=== PATIENT | female | born 1975 | race Caucasian/White ===

== ENCOUNTER 2021-03-15 23:19 | Emergency (ER) | payer OTHER ==
[~2021-03-15 23:19] MED LIST: ASPIRIN EC81 MG PO; ATORVASTATIN CA80 MG PO; BUSPAR 10MG10 MG PO; CELEBREX 200MG200 MG PO; CHANTIX1 MG PO; DUEXIS 800-26.1 EACH PO; HYDROCHLOROTH12.5 MG PO; IBU800 MG PO; K-DUR TAB 10 M10 MEQ PO; LEXAPRO10 MG PO; MOBIC15 MG PO; NEURONTIN300 MG PO; OXYCODONE HCL5 MG PO; PERCOCET 7.5-31 EACH PO; RANITIDINE HCL150 MG PO; REQUIP1 MG PO; SEROQUEL50 MG PO; VIT D PO; WELLBUTRIN PO; ZOFRAN ODT 4 MG4 MG PO
[2021-03-16 01:10] LABS: HEMOGLOBIN 13.9 gm/dl (12.3-15.3); RED BLOOD COUNT 4.78 M/UL (4.00-5.10)
[2021-03-16] MEDS ORDERED: BACTRIM DS TAB1 EACH PO (02:34)
[2021-03-16] MEDS ORDERED: PYRIDIUM200 MG PO (02:34)
== END 2021-03-16 03:00 | disposition home or self-care (01) ==
LOC: ER1 23:19
PROVIDERS: Physician Assistant Medical
DX: N30.90 Cystitis, unspecified without hematuria (principal); Z90.710 Acquired absence of both cervix and uterus; Z88.0 Allergy status to penicillin; Z79.899 Other long term (current) drug therapy
CPT/HCPCS: 80053; 81001; 85025; 96372; 99284; J1885

== ENCOUNTER 2021-04-25 20:39 | Emergency (ER) | payer OTHER ==
[~2021-04-25 20:39] MED LIST changes: +BACTRIM DS TAB1 EACH PO; +PYRIDIUM200 MG PO
== END 2021-04-25 21:35 | disposition left against medical advice (07) ==
LOC: ER1 20:39
DX: Z53.21 Procedure and treatment not carried out due to patient leaving prior to being seen by health care provider (principal)

== ENCOUNTER → 2021-09-16 | Outpatient (CLI) | payer OTHER | LOC: KOH-I 14:30 | DX: M25.521 Pain in right elbow (principal); R93.6 Abnormal findings on diagnostic imaging of limbs | CPT/HCPCS: 73718 ==

== ENCOUNTER 2021-12-20 11:05 | Emergency (ER) | payer OTHER | END 2021-12-20 12:30 | disposition home or self-care (01) | LOC: ER1 11:05 | DX: N61.1 Abscess of the breast and nipple (principal); Z88.0 Allergy status to penicillin | CPT/HCPCS: 10060; 99283 ==